=== PATIENT | male | born 1995 | race Two or more races ===

== ENCOUNTER 2020-05-17 14:51 | Emergency (ER) | payer SELFPAY ==
[~2020-05-17] VITALS: Ht 160 cm; Wt 58.1 kg
--- NOTE | 2020-05-17 15:09 | NUR ---
ED Nurse Note: Pt walked into ED for c/o diarrhea and cramping for 2 days. Pt has also had low grade fever x2days. Current temp 99.6F oral. Pt denies bodyaches, chills. A&ox4, ambulatory. Set up on monitor. Pt has been seen by [facility].
[2020-05-17 15:11] VITALS: BP 133/75
[2020-05-17 15:37] LABS: BASOPHILS % (AUTO) 0.9 % (0.0-2.0); HEMATOCRIT 51.6 % (42.0-52.0); HEMOGLOBIN 17.5 G/DL (14.2-18.0); LYMPHOCYTES % (AUTO) 19.8 % (20.0-45.0); MEAN CORPUSCULAR VOLUME 90 FL (80-99); MONOCYTES % (AUTO) 8.3 % (1.0-10.0); PLATELET COUNT 220 K/UL (150-450); RED BLOOD COUNT 5.75 M/UL (4.70-6.10); RED CELL DISTRIBUTION WIDTH 11.9 % (11.6-14.8); WHITE BLOOD COUNT 11.3 K/UL (4.8-10.8)
[2020-05-17 15:42] LABS: ANION GAP 13 mmol/L (5-15); BLOOD UREA NITROGEN 11 mg/dL (7-18); CALCIUM 9.3 MG/DL (8.5-10.1); CARBON DIOXIDE 24 MMOL/L (21-32); CHLORIDE 100 MMOL/L (98-107); CREATININE 1.2 MG/DL (0.55-1.30); POTASSIUM 3.3 MMOL/L (3.5-5.1); SODIUM 137 MMOL/L (136-145)
[2020-05-17 15:55] LABS: ALANINE AMINOTRANSFERASE 35 U/L (12-78); ALBUMIN 4.3 G/DL (3.4-5.0); ALBUMIN/GLOBULIN RATIO 0.9 (1.0-2.7); ALKALINE PHOSPHATASE 62 U/L (46-116); ASPARTATE AMINO TRANSFERASE 21 U/L (15-37)
[2020-05-17] MEDS ORDERED: ONDANSETRON ODT4 MG BC (16:23)
[2020-05-17] MEDS ORDERED: FAMOTIDINE20 MG ORAL (16:23)
[2020-05-17] MEDS ORDERED: DICYCLOMINE HCL10 MG ORAL (16:23)
--- NOTE | 2020-05-17 16:38 | NUR ---
ER DISCHARGE NOTE: Patient is cleared to be discharged per ERMD, pt is aox4, on room air, with stable vital signs. pt was given dc and prescription instructions, pt was able to verbalize understanding, pt id band and iv site removed without complications. pt is able to ambulate with steady gait. pt took all belongings. Pt educated on gastroenteritis.
[2020-05-17 16:39] VITALS: BP 128/79
--- NOTE | 2020-05-17 18:49 | Emergency Room Report ---
History of Present Illness General Chief Complaint: Diarrhea Source: Patient Present Illness HPI 24-year-old male presents the ED for evaluation. Complaining of diarrhea for the last 2 days. Also notes low-grade fever. Pain is dull, 6 out of 10, nonradiating. Denies nausea or vomiting. States that he had a COVID test done yesterday does not have the results yet. Denies any cough congestion or runny nose. Denies sick contacts or recent travel. No other aggravating relieving factors. Denies any other associated symptoms Allergies: Coded Allergies: No Known Allergies (Unverified , 05/17/20) COVID-19 Screening Contact w/high risk pt: No Experienced COVID-19 symptoms?: No COVID-19 Testing performed [employer]ESS[employer]NAG[employer]: Yes COVID-19 Screening: PUI COVID-19 COVID-19 Testing Source: NASAL Patient History Past Medical History: none Past Surgical History: none Pertinent Family History: none Social History: Denies: smoking, alcohol use, drug use Immunizations: UTD Reviewed Nursing Documentation: PMH: Agreed; PSxH: Agreed Nursing Documentation-PMH Past Medical History: No Stated History Review of Systems All Other Systems: negative except mentioned in HPI Physical Exam Vital Signs Date Time Temp Pulse Resp B/P (MAP) Pulse Ox O2 Delivery O2 Flow Rate FiO2 05/17/20 15:00 99.7 130 20 137/79 (98) 99 Room Air Sp02 EP Interpretation: reviewed, normal General Appearance: no apparent distress, alert, GCS 15, non-toxic Head: normocephalic, atraumatic Eyes: bilateral eye normal inspection, bilateral eye PERRL ENT: hearing grossly normal, normal pharynx, no angioedema, normal voice Neck: full range of motion, supple/symm/no masses Respiratory: chest non-tender, lungs clear, normal breath sounds, speaking full sentences Cardiovascular #1: regular rate, rhythm, no edema Cardiovascular #2: 2+ carotid (R), 2+ carotid (L), 2+ radial (R), 2+ radial (L), 2+ dorsalis pedis (R), 2+ dorsalis pedis (L) Gastrointestinal: normal bowel sounds, non tender, soft, non-distended, no guarding, no rebound Rectal: deferred Genitourinary: normal inspection, no CVA tenderness Musculoskeletal: back normal, normal range of motion, gait/station normal, non- tender Neurologic: alert, motor strength/tone normal, oriented x3, sensory intact, responsive, speech normal Psychiatric: judgement/insight normal, memory normal, mood/affect normal, no suicidal/homicidal ideation Reflexes: 3+ bicep (R), 3+ bicep (L), 3+ tricep (R), 3+ tricep (L), 3+ knee (R), 3+ knee (L) Lymphatic: no adenopathy Procedures Critical Care Time Critical Care Time i. I feel this is a highly complex case requiring extensive working including EKG/Rhythm strip, Xray/CT/US, Blood/urine lab work, repeat exams while in ED, and administration of strong opiates/narcotics for pain control, admission to hospital or close patient follow up. Total time: 45 min bedside evaluation and treatment excludes procedures (EKG). Reason for critical care: diarrhea, tachycardia Possible complications: hypotension, hypertension, LA, shock, arrhythmias, metabolic acidosis, end organ damage, respiratory failure. Interventions: Labs, IV fluids, COVID swab Course: Patient presenting with diarrhea, low-grade fever. Tachycardic. Given labs and IV fluids. Minimal leukocytosis. Electrolytes okay. COVID swab negative. On reassessment tachycardia improved. Patient feels better. Consultations: nursing staff, EMS, family Performed by: Dr Sheikh Tolerated well condition = serious j. because of unstable vital signs this patient had a condition that could potentially threaten life or limb. I feel this is a critical patient who required my full attention while patient was considered critical. Total Critical Care Time excluding procedures was greater than 45 minutes Medical Decision Making Diagnostic Impression: Primary Impression: Gastroenteritis ER Course Hospital Course 24-year-old M presents to ED with cramping abdominal pain with diarrhea differential diagnosis: gastritis, SBO, cholecystits, gastroenteritis Clinical course Patient placed on stretcher. In isolation. I wore full PPE. On satellite project site monitor with tachycardia. After initial history and physical I ordered labs, IV fluids Labs - noted leukocytosis, electrolytes ok, LFTs normal COVID swab negative Initially tachycardic and improved with IV fluids. On reassessment patient states he feels better. I discussed findings with patient. Likely food related. Safe for discharge with close outpatient follow-up. States he has a PMD I feel this is a highly complex case requiring extensive working including EKG/Rhythm strip, Xray/CT/US, Blood/urine lab work, repeat exams while in ED, and administration of strong opiates/narcotics for pain control, admission to hospital or close patient follow up. Diagnosis - gastroenteritis Stable and discharged to home with prescriptions for pepcid, zofran, bentyl. Followup with PMD. Return to ED if symptoms recur or worsen Laboratory Tests Test 05/17/20 15:19 White Blood Count 11.3 K/UL (4.8-10.8) H Red Blood Count 5.75 M/UL (4.70-6.10) Hemoglobin 17.5 G/DL (14.2-18.0) Hematocrit 51.6 % (42.0-52.0) Mean Corpuscular Volume 90 FL (80-99) Mean Corpuscular Hemoglobin 30.4 PG (27.0-31.0) Mean Corpuscular Hemoglobin Concent 33.9 G/DL (32.0-36.0) Red Cell Distribution Width 11.9 % (11.6-14.8) Platelet Count 220 K/UL (150-450) Mean Platelet Volume 8.7 FL (6.5-10.1) Neutrophils (%) (Auto) 71.0 % (45.0-75.0) Lymphocytes (%) (Auto) 19.8 % (20.0-45.0) L Monocytes (%) (Auto) 8.3 % (1.0-10.0) Eosinophils (%) (Auto) 0.0 % (0.0-3.0) Basophils (%) (Auto) 0.9 % (0.0-2.0) Sodium Level 137 MMOL/L (136-145) Potassium Level 3.3 MMOL/L (3.5-5.1) L Chloride Level 100 MMOL/L (98-107) Carbon Dioxide Level 24 MMOL/L (21-32) Anion Gap 13 mmol/L (5-15) Blood Urea Nitrogen 11 mg/dL (7-18) Creatinine 1.2 MG/DL (0.55-1.30) Estimat Glomerular Filtration Rate > 60 mL/min (>60) Glucose Level 116 MG/DL (74-106) H Calcium Level 9.3 MG/DL (8.5-10.1) Total Bilirubin 1.0 MG/DL (0.2-1.0) Aspartate Amino Transf (AST/SGOT) 21 U/L (15-37) Alanine Aminotransferase (ALT/SGPT) 35 U/L (12-78) Alkaline Phosphatase 62 U/L (46-116) Total Protein 9.1 G/DL (6.4-8.2) H Albumin 4.3 G/DL (3.4-5.0) Globulin 4.8 g/dL Albumin/Globulin Ratio 0.9 (1.0-2.7) L Lipase 85 U/L (73-393) Last Vital Signs Date Time Temp Pulse Resp B/P (MAP) Pulse Ox O2 Delivery O2 Flow Rate FiO2 05/17/20 16:39 99.7 102 17 128/79 99 Room Air Status: improved Disposition: HOME, SELF-CARE Condition: Stable Scripts Dicyclomine Hcl* (DICYCLOMINE HCL*) 10 Mg Capsule 10 MG ORAL TID, #10 CAP Prov: Brian Sheikh MD 05/17/20 Ondansetron Odt* (ZOFRAN ODT*) 4 Mg Tab.rapdis 4 MG BC EVERY 6 HOURS PRN for Nausea & Vomiting, #10 TAB 0 Refills Prov: Brian Sheikh MD 05/17/20 Famotidine* (Pepcid 20mg tablet*) 20 Mg Tablet 20 MG ORAL DAILY, #30 TAB 0 Refills Prov: Brian Sheikh MD 05/17/20 Referrals: NOT CHOSEN IPA/,REFERRING (PCP) [facility] Patient Instructions: Viral Gastroenteritis, Adult Brian Sheikh MD May 17, 2020 18:49
== END 2020-05-17 16:40 | disposition home or self-care (01) ==
LOC: EMR 15:44
DX: K52.9 Noninfective gastroenteritis and colitis, unspecified (principal); R00.0 Tachycardia, unspecified; D72.829 Elevated white blood cell count, unspecified
CPT/HCPCS: 36415; 80053; 83690; 85025; 96360; 99291; U0002